=== PATIENT | female | born 1940 | race Caucasian/White ===

== ENCOUNTER 2017-08-21 20:32 | Emergency (ER) | payer MEDICARE ==
[~2017-08-21] VITALS: Ht 160 cm; Wt 75.0 kg
[~2017-08-21 20:32] MED LIST: ALBU6.7H INH; BUFF325T PO; CALTTAB2 PO; DILT60TA PO; FEXO180 PO; FISH1000 PO; LEVO75TA42 PO; METO25CR OR; PROT40TA PO; TAB-TAB PO
[2017-08-21 21:05] VITALS: BP 181/87; PULSE 77; RESP 18; TEMP 98.3; O2SAT 97
--- NOTE | 2017-08-21 22:14 | RADRPT ---
EXAM DATE/TIME: 08/21/2017 21:43 [facility] COMPARISON: No previous studies available for comparison. INDICATIONS : Short of breath. MEDICAL HISTORY : None. SURGICAL HISTORY : None. ENCOUNTER: Initial ACUITY: 1 day PAIN SCORE: 0/10 LOCATION: Bilateral chest FINDINGS: There is mild basilar airspace disease. No significant effusion. No pneumothorax. Tortuous aorta. CONCLUSION: 1. Mild basilar airspace disease and interstitial prominence. No effusion. No pneumothorax. Krishna Snyder MD on August 21, 2017 at 22:09 Board Certified Radiologist. This report was verified electronically.
[2017-08-21 22:15] LABS: AUTOMATED NEUTROPHIL # 5.7 TH/MM3 (1.8-7.7); BASOPHIL # 0.1 TH/MM3 (0-0.2); BASOPHIL % 1.2 % (0.0-2.0); EOSINOPHIL # 0.2 TH/MM3 (0-0.4); EOSINOPHIL % 2.5 % (0.0-4.0); HEMATOCRIT 38.3 % (35.0-46.0); HEMOGLOBIN 13.1 GM/DL (11.6-15.3); LYMPH % 23.1 % (9.0-44.0); MEAN CELL VOLUME 94.2 FL (80.0-100.0); MEAN CORPUSCULAR HEMOGLOBIN 32.1 PG (27.0-34.0); MEAN CORPUSCULAR HGB CONC 34.1 % (32.0-36.0); MONO % 6.3 % (0.0-8.0); MONOCYTE # 0.5 TH/MM3 (0-0.9); NEUT % 66.9 % (16.0-70.0); PLATELET COUNT 284 TH/MM3 (150-450); RED BLOOD COUNT 4.07 MIL/MM3 (4.00-5.30); WHITE BLOOD COUNT 8.6 TH/MM3 (4.0-11.0)
[2017-08-21 22:24] VITALS: BP_SYST 154; BP_SYST 166; BP_SYST 173; BP_DIAS 100; BP_DIAS 88; BP_DIAS 91; RESP 16
--- NOTE | 2017-08-21 22:26 | PD ---
HPI Chief Complaint: Dizziness Time Seen by Provider: 21:55 Travel History International Travel<30 days: No Contact w/Intl Traveler<30days: No Traveled to known affect area: No History of Present Illness HPI 77-year-old female with PMH of LEXI, HTN, A. fib, IBS presents to the ED via EMS for evaluation of episodic dizziness. The patient states that she was sitting with a friend around 5 PM when the dizziness began. She states that it lasted for a few minutes before resolving spontaneously. He states that she has had several small episodes since then. She can identify no alleviating or exacerbating factors. She denies headache, vision changes, chest pain, palpitations, shortness of breath, abdominal pain, nausea, vomiting, dysuria. She states that she had a IBS flare yesterday with multiple episodes of watery diarrhea. It improved today. She states that she has been off of her medications because she is preparing first cataract surgery. She states that she's been taking Mucinex every 4-6 hours for some sinus problems. She states that she was evaluated by her primary care today. She saw an ENT specialist yesterday. PFSH Past Medical History Asthma: Yes Cancer: No Cardiovascular Problems: Yes (ATR. FIB) High Cholesterol: Yes Diabetes: No Diminished Hearing: Yes (RT EAR) Endocrine: No Gastrointestinal Disorders: Yes GERD: Yes Hepatitis: No Hiatal Hernia: No Hypertension: Yes (DIET CONTROLED) Medical other: Yes (GERD, TRIGEMINAL NEURALGIA) Musculoskeletal: Yes Neurologic: Yes (trigeminal nueralgia) Respiratory: Yes (ASTHMA, SLEEP APNEA,USES C-PAP) Thyroid Disease: Yes Past Surgical History Abdominal Surgery: No Cardiac Surgery: No Ear Surgery: No Eye Surgery: No Genitourinary Surgery: No Gynecologic Surgery: No Neurologic Surgery: Yes (VASC. DECOMPRESSION/ TRIGEM. NEURALGIA) Oral Surgery: Yes (ALL 4 WISDOM TEETH REMOVED) Pacemaker: No Thoracic Surgery: No Other Surgery: Yes Social History Alcohol Use: No Tobacco Use: No Substance Use: No Allergies-Medications (Allergen,Severity, Reaction): Coded Allergies: Sulfa (Sulfonamide Antibiotics) (Unverified Allergy, Mild, UNKNOWN, ) lidocaine (Unverified Allergy, Mild, 03/13/17) Uncoded Allergies: MINT (Allergy, Severe, 09/07/11) Reported Meds & Prescriptions Reported Meds & Active Scripts Active Reported Ventolin Hfa 18 GM Inh (Albuterol Sulfate) 90 Mcg/Act Aer 1 Puff INH Q4H PRN Systane Opth Drops (Polyethylene Glycol-Propylene Glycol Opth Drp) 0.4-0.3% Soln 1-2 Drop EACH EYE PRN PRN Vitamin D-1000 (Cholecalciferol) 1,000 Unit Tab 1,000 Units PO DAILY Myrbetriq (Mirabegron) 25 Mg Tab 25 Mg PO DAILY Pantoprazole (Pantoprazole Sodium) 40 Mg Tab 40 Mg PO DAILY Metoprolol Succinate ER 24 HR (Metoprolol Succinate) 25 Mg Tab 25 Mg PO DAILY Aspirin Low Dose (Aspirin) 81 Mg Chew 81 Mg CHEW DAILY [place]-3 350 mg Cap ([place]-3S/Dha/Epa/Fish Oil) 350 Mg (100 Mg-225 Mg- 25 Mg) Capsule Centrum (Multiple Vitamins W/ Minerals) 1 Chew 1 Tab CHEW DAILY Caltrate 600+D Chew (Calcium Carbonate-Vitamin D Chew) 600-400 Mg-Unit Chew 1 Tab PO BID Milk of Magnesia Liq (Magnesium Hydroxide) 400 Mg/5 Ml Susp 30 Ml PO DAILY PRN Florastor (Saccharomyces Boulardii) 250 Mg Cap 250 Mg PO DAILY Benefiber (Wheat Dextrin) 3 Gram/3.8 Gram Powder Levoxyl (Levothyroxine Sodium) 75 Mcg Tab 75 Mcg PO DAILY Review of Systems Except as stated in HPI: all other systems reviewed are Neg Physical Exam Narrative GENERAL: Well-nourished, well-developed -appearing white female in no acute distress. SKIN: Warm and dry. HEAD: Normocephalic. Atraumatic. EYES: No scleral icterus. No injection or drainage. PERRLA. EOMI. ENT: Pearly healy tympanic membranes bilaterally. Hearing aid in place on the left. Nasal mucosa is moist. Oropharynx without erythema, edema or exudate. NECK: Supple, trachea midline. No JVD or lymphadenopathy. CARDIOVASCULAR: Regular rate and rhythm without murmurs, gallops, or rubs. RESPIRATORY: Breath sounds clear and equal bilaterally. No accessory muscle use. GASTROINTESTINAL: Abdomen soft, non-tender, nondistended. + Bowel sounds MUSCULOSKELETAL: No cyanosis, or edema. NEUROLOGICAL: Awake and alert. Cranial nerves II through XII intact. Motor and sensory grossly within normal limits. Five out of 5 muscle strength in all muscle groups. Normal speech. BACK: Nontender without obvious deformity. No CVA tenderness. Data Data Last Documented VS Vital Signs Date Time Temp Pulse Resp B/P (MAP) Pulse Ox O2 Delivery O2 Flow Rate FiO2 08/21/17 23:15 72 16 161/92 (115) 98 08/21/17 21:05 98.3 Orders Orders Electrocardiogram (08/21/17 21:28) Complete Blood Count With Diff (08/21/17 21:28) Basic Metabolic Panel (Bmp) (08/21/17 21:28) Ckmb (Isoenzyme) Profile (08/21/17 21:28) Troponin I (08/21/17 21:28) Chest, Single Ap (08/21/17 21:28) Iv Access Insert/Monitor (08/21/17 21:28) Ecg Monitoring (08/21/17 21:28) Oximetry (08/21/17 21:28) Ct Brain W/O Iv Contrast(Rout) (08/21/17 ) Orthostatic Vital Signs (08/21/17 22:20) Urinalysis - C+S If Indicated (08/21/17 22:22) Meclizine (Antivert) (08/21/17 23:00) Metoprolol Succinate Er (Toprol Xl) (08/21/17 23:00) Ed Discharge Order (08/21/17 23:07) Labs Laboratory Tests Test 08/21/17 21:35 08/21/17 21:55 White Blood Count 8.6 TH/MM3 Red Blood Count 4.07 MIL/MM3 Hemoglobin 13.1 GM/DL Hematocrit 38.3 % Mean Corpuscular Volume 94.2 FL Mean Corpuscular Hemoglobin 32.1 PG Mean Corpuscular Hemoglobin Concent 34.1 % Red Cell Distribution Width 13.0 % Platelet Count 284 TH/MM3 Mean Platelet Volume 8.0 FL Neutrophils (%) (Auto) 66.9 % Lymphocytes (%) (Auto) 23.1 % Monocytes (%) (Auto) 6.3 % Eosinophils (%) (Auto) 2.5 % Basophils (%) (Auto) 1.2 % Neutrophils # (Auto) 5.7 TH/MM3 Lymphocytes # (Auto) 2.0 TH/MM3 Monocytes # (Auto) 0.5 TH/MM3 Eosinophils # (Auto) 0.2 TH/MM3 Basophils # (Auto) 0.1 TH/MM3 CBC Comment DIFF FINAL Differential Comment Blood Urea Nitrogen 9 MG/DL Creatinine 0.64 MG/DL Random Glucose 96 MG/DL Calcium Level 8.8 MG/DL Sodium Level 141 MEQ/L Potassium Level 3.8 MEQ/L Chloride Level 108 MEQ/L Carbon Dioxide Level 27.5 MEQ/L Anion Gap 6 MEQ/L Estimat Glomerular Filtration Rate 90 ML/MIN Total Creatine Kinase 91 U/L Troponin I LESS THAN 0.02 NG/ML Urine Color LIGHT-YELLOW Urine Turbidity CLEAR Urine pH 6.5 Urine Specific [place] 1.003 Urine Protein NEG mg/dL Urine Glucose (UA) NEG mg/dL Urine Ketones NEG mg/dL Urine Occult Blood NEG Urine Nitrite NEG Urine Bilirubin NEG Urine Urobilinogen LESS THAN 2.0 MG/DL Urine Leukocyte Esterase TRACE Urine RBC LESS THAN 1 /hpf Urine WBC 1 /hpf Microscopic Urinalysis Comment CULT NOT INDICATED MDM Medical Decision Making Medical Screen Exam Complete: Yes Emergency Medical Condition: Yes Differential Diagnosis Hypertension versus medication side effect versus metabolic derangement versus orthostatic hypotension versus TIA versus CVA versus UTI versus other Narrative Course 77-year-old female with PMH of LEXI, HTN, A. fib, IBS presents to the ED via EMS for evaluation of episodic dizziness. Onset at rest, around 5 PM. Lasted for a few minutes before resolving. She endorses a few other episodes since. She states that she had a IBS flare yesterday with multiple episodes of watery diarrhea. Improved today. She has been off some of her medications because she is preparing for cataract surgery. She states that she's been taking Mucinex every 4-6 hours for some sinus problems. She states that she was evaluated by her primary care today. She saw an ENT specialist yesterday. The patient is hypertensive on arrival. On exam she is nontoxic appearing. No focal neuro deficits. She does have an episode of dizziness when she sits up that resolves when she lies back during the exam. EKG rate 71, sinus rhythm. Indeterminate axis. Incomplete right bundle-branch block. No acute ST changes. Reviewed by Dr. Hooper. CXR: No acute findings. Cardiac enzymes negative 1. CT brain no intracranial process per radiology read. CBC, CMP, UA unremarkable. I suspect that her symptoms are side effects from the Mucinex. She saw her ENT yesterday and he thinks her problem is neurological. She does not need to be taking the Mucinex at all. I discussed the results of the workup and my suspicion with the patient and her family. The patient will be staying with her daughter priti. She is administered her evening dose of metoprolol and a dose of meclizine. She is instructed to follow-up with her primary care provider, return for worsening symptoms. Patient and her family indicated understanding of instructions and are agreeable to the care plan. The patient is stable and discharged home. Diagnosis Primary Impression: Dizziness Referrals: Primary Care Physician Patient Instructions: Dizziness (ED), General Instructions Additional Instructions: Rest, hydrate. Return to normal, gentle activity as tolerated. Stop taking Mucinex. Follow-up with your primary care provider. Return to the ED for any urgent or emergent medical condition. Disposition: 01 DISCHARGE HOME Condition: Stable Ramila Helton Aug 21, 2017 22:26
[2017-08-21 22:32] LABS: BILIRUBIN, URINE NEG (NEG); BLOOD, URINE NEG (NEG); GLUCOSE,URINE NEG (NEG); KETONE, URINE NEG (NEG); NITRITE,URINE NEG (NEG); PH, URINE 6.5 (5.0-8.5); URINE COLOR LIGHT-YELLOW (YELLW/STRAW); URINE LEUKOCYTE ESTERASE TRACE (NEG)
[2017-08-21 22:40] LABS: BICARBONATE 27.5 MEQ/L (21.0-32.0); BLOOD UREA NITROGEN 9 MG/DL (7-18); CALCIUM 8.8 MG/DL (8.5-10.1); CHLORIDE 108 MEQ/L (98-107); CREATININE 0.64 MG/DL (0.50-1.00); GLOMERULAR FILTRATION RATE 90 ML/MIN (>89); GLUCOSE,RANDOM 96 MG/DL (74-106); SODIUM (NA) 141 MEQ/L (136-145)
[2017-08-21 22:42] LABS: TROPONIN I LESS THAN 0.02 NG/ML (0.02-0.05)
--- NOTE | 2017-08-21 22:53 | RADRPT ---
EXAM DATE/TIME: 08/21/2017 22:21 [facility] COMPARISON: No previous studies available for comparison. INDICATIONS : Elevated blood pressure and dizziness. RADIATION DOSE: 56.35 CTDIvol (mGy) MEDICAL HISTORY : Hypertension. SURGICAL HISTORY : None. ENCOUNTER: Initial ACUITY: 1 day PAIN SCALE: 0/10 LOCATION: cranial TECHNIQUE: Multiple contiguous axial images were obtained of the head. Using automated exposure control and adj ustment of the mA and/or kV according to patient size, radiation dose was kept as low as reasonably a chievable to obtain optimal diagnostic quality images. DICOM format image data is available electro nically for review and comparison. FINDINGS: CEREBRUM: The ventricles are normal for age. No evidence of midline shift, mass lesion, hemorrhage or acute in farction. No extra-axial fluid collections are seen. POSTERIOR FOSSA: The cerebellum and brainstem are intact. The 4th ventricle is midline. The cerebellopontine angle i s unremarkable. EXTRACRANIAL: The visualized portion of the orbits is intact. SKULL: The calvaria is intact. No evidence of skull fracture. CONCLUSION: 1. No acute findings. White matter ischemic changes. Krishna Snyder MD on August 21, 2017 at 22:47 Board Certified Radiologist. This report was verified electronically.
[2017-08-21] MEDS ORDERED: MECLIZINE HCL 25 MG TAB PO ONE (23:00)
[2017-08-21] MEDS ORDERED: METOPROLOL SUCCINATE 50 MG EXTENDED RELEASE TAB PO ONE (23:00)
[2017-08-21] MEDS ORDERED: SYSTSOL EACH EYE (23:05)
[2017-08-21] MEDS ORDERED: ASPI81CH6 CHEW (23:05)
[2017-08-21] MEDS ORDERED: FLOR250C PO (23:05)
[2017-08-21] MEDS ORDERED: VENTAER INH (23:05)
[2017-08-21] MEDS ORDERED: VITA1000 PO (23:05)
[2017-08-21] MEDS ORDERED: MIRA25TA PO (23:05)
[2017-08-21] MEDS ORDERED: [UNRECOGNIZED DRUG - CODE] (23:05)
[2017-08-21] MEDS ORDERED: LEVO75TA43 PO (23:05)
[2017-08-21] MEDS ORDERED: CALTCHW5 PO (23:05)
[2017-08-21] MEDS ORDERED: CENTCHW4 CHEW (23:05)
[2017-08-21] MEDS ORDERED: MILKSUS PO (23:05)
[2017-08-21] MEDS ORDERED: WHEA1POW9 (23:05)
[2017-08-21] MEDS ORDERED: METO1TAB42 PO (23:05)
[2017-08-21] MEDS ORDERED: PANT40TA3 PO (23:05)
[2017-08-21 23:15] VITALS: BP 161/92
--- NOTE | 2017-08-22 12:16 | EKG ---
Date Performed: 08/21/2017 Time Performed: 21:31:59 PTAGE: 77 years EKG: Sinus rhythm INDETERMINATE AXIS INCOMPLETE RIGHT BUNDLE BRANCH BLOCK BORDERLINE ECG PREVIOUS TRACING : 05/22/2011 05.26 Since the prior tracing, there has been no significant medrano DOCTOR: Dominick Jorgensen Interpretating Date/Time 08/22/2017 12:16:39
== END 2017-08-21 23:38 | disposition home or self-care (01) ==
LOC: NEPE 20:32
DX: R42 Dizziness and giddiness (principal); K58.0 Irritable bowel syndrome with diarrhea; R94.31 Abnormal electrocardiogram [ECG] [EKG]; I10 Essential (primary) hypertension; I48.91 Unspecified atrial fibrillation; J45.909 Unspecified asthma, uncomplicated; E78.00 Pure hypercholesterolemia, unspecified; K21.9 Gastro-esophageal reflux disease without esophagitis; E07.9 Disorder of thyroid, unspecified
CPT/HCPCS: 70450; 71045; 80048; 81001; 82550; 84484; 85025; 93005; 99285